=== PATIENT | male | born 1985 | race Caucasian/White ===

== ENCOUNTER 2019-01-31 07:04 | Emergency (ER) | payer MEDICAID, OTHER ==
[~2019-01-31] VITALS: Ht 180.3 cm; Wt 64.9 kg
[2019-01-31 08:13] LABS: Basophils # (auto) 0 uL; Basophils % (auto) 0.5 % (0.0-2.0); Eosinophils # (auto) 0 uL; Eosinophils % (auto) 0.1 % (0.0-7.0); Hematocrit 42.4 % (41.0-53.0); Hemoglobin 14.7 g/dL (13.5-17.5); Lymphocytes # (auto) 0.9 uL; Lymphocytes % (auto) 9.3 % (10.0-50.0); Mean Corpuscular Hemoglobin 27.6 pg (28.0-32.0); Mean Corpuscular Hgb Conc. 34.8 g/dL (32.0-36.0); Mean Corpuscular Volume 79.4 fL (80.0-100.0); Monocytes # (auto) 0.7 uL; Monocytes % (auto) 7.6 % (0.0-12.0); Neutrophils # (auto) 7.9 uL; Neutrophils % (auto) 82.5 % (37.0-80.0); Platelet Count (auto) 271 10^3/uL (140-450); Red Blood Cells 5.34 10^6/uL (4.5-5.90); Red Cell Distribution Width 13.9 % (11.8-14.3); White Blood Cell 9.6 10^3/uL (4.4-10.8)
[2019-01-31 08:21] LABS: Alanine Aminotransferase 32 U/L (16-61); Albumin 2.5 g/dL (3.4-5.0); Anion Gap 8 (5-15); BUN/Creatinine Ratio 21.3; Blood Urea Nitrogen 17 mg/dL (7-18); Calcium 8.5 mg/dL (8.5-10.1); Carbon Dioxide 26 mmol/L (21-32); Chloride 95 mmol/L (98-107); GFR African American 144 mL/min; GFR Non-African American 119 mL/min; Glucose 102 mg/dL (74-106); Potassium 3.5 mmol/L (3.5-5.1); Sodium 129 mmol/L (136-145)
[2019-01-31 08:26] LABS: Alkaline Phosphatase 97 U/L (45-117); Aspartate Aminotransferase 20 U/L (15-37); Bilirubin, Total 1.3 mg/dL (0.2-1.0); INR 1.05 (0.9-1.15); Partial Thromboplastin Time 27.6 sec (23.64-32.05); Total Protein 7.9 g/dL (6.4-8.2)
[2019-01-31] MEDS ORDERED: SODIUM CHLORIDE 0.9% 1,000 ML IV ONE ×2 (08:38)
[2019-01-31] MEDS ORDERED: LORazepam 2MG/ML-1ML VIAL IV ONE (08:45)
[2019-01-31] MEDS ORDERED: cefTRIAXone 1GM/50ML D5W 50 ML IV ONE (10:00)
[2019-01-31 10:50] LABS: Urine Bacteria NONE SEEN /hpf (None Seen); Urine Blood Negative /uL (Negative); Urine Specific Gravity 1.006 (1.001-1.035); Urine WBC 1 /hpf (0 - 3)
[2019-01-31 11:06] LABS: Alcohol, Urine < 3.0 mg/dL (0-5); Amphetamine Screen, Urine POSITIVE (NEGATIVE); Barbiturate Scree,Urine NEGATIVE (NEGATIVE); Benzodiazephine Screen, Urine NEGATIVE (NEGATIVE); Cocaine Screen, Urine NEGATIVE (NEGATIVE); Phencyclidine Screen, Urine NEGATIVE (NEGATIVE)
[2019-01-31 11:14] LABS: Cannabinoid Screen, Urine POSITIVE (NEGATIVE); Opiate Scree,Urine POSITIVE (NEGATIVE)
[2019-01-31 12:37] VITALS: BP 126/85
== END 2019-01-31 12:46 | disposition home or self-care (01) ==
LOC: ER 07:04
DX: E86.0 Dehydration (principal); F11.129 Opioid abuse with intoxication, unspecified; J18.9 Pneumonia, unspecified organism; E46 Unspecified protein-calorie malnutrition; F12.10 Cannabis abuse, uncomplicated; F15.10 Other stimulant abuse, uncomplicated; Z68.1 Body mass index [BMI] 19.9 or less, adult
CPT/HCPCS: 36415; 71045; 80053; 80307; 81001; 82962; 84484; 85025; 85610; 85730; 93005; 96361; 96365; 96375; 99284; J0696; J2060; J7030